=== PATIENT | female | born 1985 | race Caucasian/White ===

== ENCOUNTER → 2020-01-10 08:02 | Outpatient (BNVA) | payer SELFPAY | PROVIDERS: PCP Internal Medicine | DX: Z13.89 Encounter for screening for other disorder (principal) ==

== ENCOUNTER 2020-12-19 11:27 | Outpatient (REF) | payer BC, SELFPAY ==
--- NOTE | ~2020-12-19 | US_ITS ---
EXAMINATION: US OBSTETRICAL ULTRASOUND CLINICAL INFORMATION: Spotting. Rule out ectopic . COMPARISON: None. LMP: 10/19/2020. Gestational age by maternal dates is 8 weeks 5 days. Estimated date of delivery by maternal dates is 07/16/2021. TECHNIQUE: Transabdominal and transvaginal first trimester OB ultrasound FINDINGS: There is an intrauterine gestational sac. [place]-rump length measures 0.5 cm suggesting gestational age of 6 weeks 2 days with estimated date of delivery of 08/12/2021. This is behind date from LMP. No discernible heart rate can be detected at this time. There may be a large yolk sac. No subchorionic collection is seen. The right ovary is enlarged and measures 6.1 x 3.7 x 5.1 cm. There is a 5 x 4.8 x 4.3 cm simple right ovarian cyst. The left ovary is normal-appearing and measures 2.4 x 2.2 x 2.5 cm. There is no fluid in the pelvis. US/US OB pelvic and transvaginal IMPRESSION: Intrauterine . Gestational age is estimated at 6 weeks 2 days with estimated date of delivery of 08/12/2021. This is behind date from LMP. No discernible heart activity at this time. Question large yolk sac. Enlarged right ovary and large 5 x 4.8 x 4.3 cm right ovarian cyst.
[2020-12-19 13:10] LABS: HCG Quantitative 1765 mIU/mL
== END 2020-12-19 11:28 | disposition home or self-care (01) ==
LOC: HO.US 11:27
PROVIDERS: PCP Family Medicine; Visit Provider Obstetrics & Gynecology
DX: O26.851 Spotting complicating pregnancy, first trimester (principal); Z3A.08 8 weeks gestation of pregnancy
CPT/HCPCS: 36415; 76801; 76817; 84702